=== PATIENT | female | born 1970 | race Caucasian/White ===

== ENCOUNTER 2022-10-07 04:00 | Day surgery (SDC) | payer BC ==
[2022-10-05 10:57] VITALS: BMI 25.1
[2022-10-07] MEDS ORDERED: PROPOFOL 20 ML ONE (07:48)
[2022-10-07] MEDS ORDERED: MIDAZOLAM HCL 2 MG/2 ML SINGLE DOSE VIAL ONE (07:48)
[2022-10-07] MEDS ORDERED: oxyCODONE HCL 5 MG TABLET PO PRN (07:55)
[2022-10-07] MEDS ORDERED: ONDANSETRON 4 MG/2 ML VIAL IVPUSH PRN ×2 (07:55→09:46)
[2022-10-07] MEDS ORDERED: LACTATED RINGERS SOLUTION 1,000 ML IV SCH (08:00)
[2022-10-07] MEDS ORDERED: ceFAZolin SODIUM 1 GM VIAL IVPB ONE (08:30)
[2022-10-07] MEDS: ACETAMINOPHEN 1000 MG/100 ML BAG IVPB ONE ×2 (10:00→10:10)
[2022-10-07] MEDS ORDERED: ACETAMINOPHEN INJECTION 100 ML IVPB ONE (10:08)
[2022-10-07 12:07] VITALS: RESP 16
[2022-10-07 14:01] VITALS: BP 145/75; PULSE 64; TEMP 97.5
== END 2022-10-07 12:40 | disposition home or self-care (01) ==
LOC: JASU-SURG 04:00
PROVIDERS: ATTEND Surgery Vascular Surgery
PROC: 06DY0ZZ Extraction of Lower Vein, Open Approach (ICD-10-PCS; principal; 2022-10-07 15:30)
DX: I83.92 Asymptomatic varicose veins of left lower extremity (principal)
CPT/HCPCS: 81025; 88304-TC; 94760